=== PATIENT | male | born 1960 | race Caucasian/White ===

== ENCOUNTER → 2016-07-21 | Day surgery (SDC) | payer OTHER ==
[~2016-07-21] MED LIST: BUPIVACAINE HCL PF 0.5% 30 ML VIAL ONE; CYCL1TAB29 PO; GABA100C4 PO; HYDR-3583 PO; MULTTAB67 PO; PROPOFOL 200 MG/20 ML AMP IV ONE; SERT-129 PO; TRIAMCINOLONE ACETONIDE 40 MG/ML VIAL I-ARTICULR ONE
--- NOTE | 2016-07-26 10:11 | M6 ---
cc: CALVIN NAVARRO M.D. DATE: 07/21/2016 DATE OF : 1960 PROCEDURE Fluoroscopically guided bilateral cervical facet joint injections History and physical was completed and signed. Consent was signed. Procedure site was marked. Medications were listed and reconciled. Pain score was recorded. Allergies were noted. Time out was taken. Fluoroscopy time was recorded where applicable. Sedation was administered or directed by Dr. Navarro. The patient was given oxygen. The patient was monitored by a registered nurse. Total procedure time was greater than 15 minutes. PROCEDURE NOTE: IV was started, blood pressure cuff, pulse oximeter and EKG were applied. The patient was placed in the prone position on a Sha table sedated with small amounts of propofol titrated to effect. Vital signs were monitored and remained stable throughout the procedure. The cervical area was prepped with alcohol and 10% Betadine solution, draped with sterile drapes. Fluoroscopy was used to visualize the bilateral cervical facet joints at C3-C4, C4-C5 and C5-C6. Separate sterile 3-1/2 inch, 25 gauge spinal needles were advanced into these joints under fluoroscopic guidance. There was negative aspiration for blood or any other type of fluid and the patient was given 1 mL of 0.5% Marcaine, 10 mg of Kenalog at each location. Following this the patient was taken to the recovery room with stable vital signs neurologically intact. He will be evaluated immediately and with followup to determine if he has a subjective decrease in his usual pain and a corresponding objective increase his functional capabilities. W. MD BUD Kwan/LJ /9:27 AM /10:09 AM
== END | disposition home or self-care (01) ==
LOC: PHSDC 08:35
PROVIDERS: ATTEND Pain Medicine Interventional Pain Medicine
DX: M54.2 Cervicalgia (principal)
CPT/HCPCS: 64490; 64491; 64492; 99152; J3301

== ENCOUNTER → 2017-01-14 | Day surgery (SDC) | payer OTHER ==
[~2017-01-14] MED LIST changes: +methylPREDNISolone ACETATE 40 MG/ML VIAL I-ARTICULR ONE
--- NOTE | 2017-01-14 08:42 | M6 ---
cc: CALVIN NAVARRO M.D. DATE: 01/14/2017 1960 PROCEDURE 1. Fluoroscopically guided injection bilateral cervical facet joints. 2. Fluoroscopically guided injection bilateral sacroiliac joints. History and physical was completed and signed. Consent was signed. Procedure site was marked. Medications were listed and reconciled. Pain score was recorded. Allergies were noted. Time out was taken. Fluoroscopy time was recorded where applicable. Sedation was administered or directed by Dr. Navarro. The patient was given oxygen. The patient was monitored by a registered nurse. Total procedure time was greater than 15 minutes. IV was started, blood pressure cuff, pulse oximeter and EKG were applied. The patient was placed in the prone position on a Sha table, sedated with small amounts of propofol titrated to effect. Vital signs were monitored and remained stable throughout the procedure. The cervical area was prepped with alcohol and 10% Betadine solution, draped with sterile drapes. Fluoroscopy was used to visualize the bilateral cervical facet joints at C3-4, C4-5 and C5-6. Separate sterile 3-1/2-inch 25-gauge spinal needles were advanced to these joints under fluoroscopic guidance. There was negative aspiration for blood or any other type of fluid and at each location the patient was given 1 mL Marcaine 0.5% which contained 10 mg of Kenalog. Following that the area over the bilateral sacroiliac joints was prepped with alcohol and Betadine and draped with sterile drapes. 5-1/2-inch 22-gauge spinal needles were advanced into the joints using fluoroscopy shooting from medial to lateral, so the posterior joint line of the sacroiliac joint was clearly visualized and there was negative aspiration for blood or any other type of fluid. At each location the patient was given 2 mL of 0.5% Marcaine and 20 mg of Depo-Medrol. Following the procedure the patient was taken to the recovery room with stable vital signs, neurologically intact. W. MD BUD Kwan/MALAL /8:29 AM /8:33 AM
== END | disposition home or self-care (01) ==
LOC: PHSDC 07:22
PROVIDERS: ATTEND Pain Medicine Interventional Pain Medicine
DX: M47.22 Other spondylosis with radiculopathy, cervical region (principal); M46.82 Other specified inflammatory spondylopathies, cervical region
CPT/HCPCS: 27096; 64490; 64491; 64492; 99152; J1030; J3301; G0260

== ENCOUNTER 2017-07-14 12:42 | Emergency (ER) | payer OTHER ==
[~2017-07-14] VITALS: Ht 167.6 cm; Wt 80.0 kg
[~2017-07-14 12:42] MED LIST changes: -BUPIVACAINE HCL PF 0.5% 30 ML VIAL ONE; +CYCL10TA PO; -CYCL1TAB29 PO; -PROPOFOL 200 MG/20 ML AMP IV ONE; -TRIAMCINOLONE ACETONIDE 40 MG/ML VIAL I-ARTICULR ONE; -methylPREDNISolone ACETATE 40 MG/ML VIAL I-ARTICULR ONE
[2017-07-14 13:02] VITALS: BP 202/102; PULSE 104; RESP 16; TEMP 97.9; O2SAT 94
[2017-07-14] MEDS ORDERED: ROBA750T PO (15:41)
[2017-07-14] MEDS ORDERED: MEDR4PAK PO (16:05)
--- NOTE | 2017-07-14 16:05 | PD ---
HPI Chief Complaint: Back/ Neck Pain or Injury Time Seen by Provider: 15:43 Travel History International Travel<30 days: No Contact w/Intl Traveler<30days: No Traveled to known affect area: No History of Present Illness HPI 57-year-old male presents to the emergency department wanting relief from his chronic low back pain. He is a patient of Dr. Dunbar and he had an outpatient MRI done on Wednesday which showed moderate to severe stenosis of L3-S1. Has an appointment with Dr. Green scheduled next Wednesday. He says he has had worsening of his low back pain for the last 3 weeks with some bilateral leg weakness. Back pain is equal bilaterally. Says it radiates down both of his legs. Says he is able to ambulate, but it is difficult to stand up straight secondary to the pain increasing. Reports decreased flexion and extension of foot which has been going on for a long time now. Has no change in symptoms since he had the MRI on Wednesday. Denies encopresis, incontinence, saddle anesthesias. Denies IV drug use, cancer. Denies fever, vomiting, abdominal pain, change in urine or stool. Takes Lortab 10 mg 3 times daily and Robaxin every 6 hours 750 mg for symptom management. Rates pain 10/10. Worse with standing up straight. Better at rest. Neurosurgeons Dr. Hand. No known allergies. Has no other medical complaints. No other modifying factors or associated signs and symptoms. PFSH Past Medical History Cancer: No Cardiovascular Problems: No Diabetes: No Diminished Hearing: No Endocrine: No Gastrointestinal Disorders: No Genitourinary: No Hepatitis: No Hiatal Hernia: No Hypertension: No Immune Disorder: No Implanted Vascular Access Dvce: No Musculoskeletal: Yes (ARTHRITIS, NECK AND BACK) Neurologic: Yes (NUMBNESS TINGLING LEFT ARM AND LEFT SIDE OF FACE) Psychiatric: No Reproductive: No Respiratory: No Thyroid Disease: No Past Surgical History Oral Surgery: Yes (TONSILLECTOMY, WISDOM TEETH EXTRACTED) Tonsillectomy: Yes Other Surgery: Yes (CERVICAL FUSION - 2016 BY IMTIAZ) Social History Alcohol Use: Yes (seldom) Tobacco Use: No (chew daily) Substance Use: No Allergies-Medications (Allergen,Severity, Reaction): Coded Allergies: No Known Allergies (Verified Adverse Reaction, Unknown, 07/14/17) Reported Meds & Prescriptions Reported Meds & Active Scripts Active Medrol Dosepak (Methylprednisolone) 4 Mg Dspk 4 Mg PO DIRECTED Per Pharmacist direction Reported Robaxin (Methocarbamol) 750 Mg Tab 750 Mg PO Q4H Flexeril (Cyclobenzaprine HCl) 10 Mg Tab 10 Mg PO HS Gabapentin 100 Mg Cap 100 Mg PO DAILY Hydrocodone-Acetaminophen 10-325 mg Tab 1 Tab PO Q6H PRN Multiple Vitamin 1 Tab 1 Tab PO DAILY Sertraline (Sertraline HCl) 100 Mg Tab 150 Mg PO HS Review of Systems Except as stated in HPI: all other systems reviewed are Neg Physical Exam Narrative GENERAL: Well-nourished, well-developed male patient, in no acute distress; afebrile, nontoxic-appearing SKIN: Warm and dry. HEAD: Atraumatic. Normocephalic. EYES: Pupils equal and round. No scleral icterus. No injection or drainage. ENT: Mucosa pink and moist. Airway patent. NECK: Trachea midline. CARDIOVASCULAR: Regular rate. RESPIRATORY: No accessory muscle use. GASTROINTESTINAL: Rounded. MUSCULOSKELETAL: Bilateral lower extremities supple and non-tense with 2+ pedal pulses and sensory intact; with full range of motion and 5/5 strength. 2 + DTRs bilaterally. Active dorsiflexion and extension of bilateral feet; less to the right foot than the left. Bilateral straight leg raise is positive for low back pain. Ambulatory in room with guarded gait. Sitting up in bed at 90 . No obvious deformities. No clubbing. No cyanosis. No edema. BACK: Midline point tenderness on palpation of the lumbar spine. Tenderness on palpation of bilateral lumbar and paraspinal iliosacral area. No obvious deformities. NEUROLOGICAL: Awake and alert. Oriented 3. No obvious cranial nerve deficits. Motor grossly within normal limits. Normal speech. Moves all extremities. 5/5 strength to all extremities. Sensory intact. PSYCHIATRIC: Appropriate mood and affect; insight and judgment normal. Data Data Last Documented VS Vital Signs Date Time Temp Pulse Resp B/P (MAP) Pulse Ox O2 Delivery O2 Flow Rate FiO2 07/14/17 13:02 97.9 104 16 202/102 (135) 94 Orders Orders Ed Discharge Order (07/14/17 16:05) MDM Medical Decision Making Medical Screen Exam Complete: Yes Emergency Medical Condition: Yes Medical Record Reviewed: Yes Differential Diagnosis Spinal stenosis, degenerative disc disease, acute exacerbation of chronic low back pain, pain management Narrative Course 57-year-old male with chronic low back pain and presents to the ER for relief of pain. He has an appointment scheduled next Wednesday with Dr. Hand, his neurosurgeon. He had outpatient MRI done on Wednesday which showed severe stenosis of L3-S1. He denies encopresis, incontinence, saddle anesthesias. Denies IV drug use or cancer. His current symptoms have been unchanged since Wednesday and are consistent with symptoms for the past few weeks. I discussed the patient with Dr. French, my attending physician, and he agrees with my plan of care. Patient has Lortab and Robaxin prescribed for home. Medrol Dosepak prescribed for home. Instructed patient to follow-up with Dr. Hand as scheduled. Instructed patient to follow up with primary care provider. Patient verbalizes understanding and agreement with treatment plan. Patient is medically cleared and stable for discharge. Discussed reasons to return to the emergency department. Patient agrees with treatment plan. The patients vital signs are stable and the patient is stable for outpatient follow-up and treatment. Patient discharged home, stable and in no acute distress. Diagnosis Primary Impression: Chronic low back pain Qualified Codes: M54.5 - Low back pain; G89.29 - Other chronic pain Referrals: Neurosurgeon Primary Care Physician Patient Instructions: Acute Low Back Pain (ED), General Instructions, Sciatica (ED) Departure Forms: Tests/Procedures, Work Release Enter return to work date: Jul 22, 2017 Additional Instructions: Tylenol or ibuprofen as directed and as needed for pain Robaxin as prescribed and as needed for muscle spasms Heating pad and/or ice to affected area to reduce pain Avoid aggravating activities; increase activity as tolerated Follow-up with primary care provider Follow-up with Dr. Hand at scheduled appointment Return to emergency department immediately with worsening of symptoms Med/Other Pt SpecificInfo: Prescription(s) given Scripts Methylprednisolone Dosepak (Medrol Dosepak) 4 Mg Dspk 4 MG PO DIRECTED, #1 DSPK 0 Refills Per Pharmacist direction Prov: Eneida Hooks 07/14/17 Disposition: 01 DISCHARGE HOME Condition: Stable Eneida Hooks Jul 14, 2017 16:05
[2017-07-14 16:16] VITALS: BP 136/93
[2017-07-23] MEDS ORDERED: DICL1CAP4 PO (06:31)
== END 2017-07-14 16:31 | disposition home or self-care (01) ==
LOC: NEPD 12:42
DX: M54.5 Low back pain (principal); G89.29 Other chronic pain
CPT/HCPCS: 99283

== ENCOUNTER → 2017-07-21 | Outpatient (CLI) | payer OTHER ==
[~2017-07-21] MED LIST changes: +DICL1CAP4 PO; +MEDR4PAK PO; +ROBA750T PO
[2017-07-21 15:29] LABS: BILIRUBIN, URINE NEG (NEG); BLOOD, URINE MOD (NEG); GLUCOSE,URINE NEG (NEG); KETONE, URINE NEG (NEG); MUCUS URINE FEW /lpf (OCC); NITRITE,URINE NEG (NEG); URINE COLOR YELLOW (YELLW/STRAW); URINE LEUKOCYTE ESTERASE NEG (NEG)
[2017-07-21 15:50] LABS: AUTOMATED NEUTROPHIL # 4.9 TH/MM3 (1.8-7.7); BASOPHIL # 0.1 TH/MM3 (0-0.2); EOSINOPHIL # 0.3 TH/MM3 (0-0.4); EOSINOPHIL % 3.5 % (0.0-4.0); HEMATOCRIT 44.7 % (39.0-51.0); HEMOGLOBIN 15.6 GM/DL (13.0-17.0); LYMPH % 25.3 % (9.0-44.0); LYMPHOCYTE # 2.1 TH/MM3 (1.0-4.8); MEAN CORPUSCULAR HEMOGLOBIN 32.1 PG (27.0-34.0); MEAN CORPUSCULAR HGB CONC 34.9 % (32.0-36.0); MEAN PLATELET VOLUME 6.9 FL (7.0-11.0); MONO % 9.6 % (0.0-8.0); MONOCYTE # 0.8 TH/MM3 (0-0.9); NEUT % 60.6 % (16.0-70.0); PLATELET COUNT 348 TH/MM3 (150-450); RED BLOOD COUNT 4.86 MIL/MM3 (4.50-5.90); RED CELL DISTRIBUTION WIDTH 13.1 % (11.6-17.2); WHITE BLOOD COUNT 8.1 TH/MM3 (4.0-11.0)
[2017-07-21 17:22] LABS: AST (GOT) 23 U/L (15-37); BICARBONATE 23.2 MEQ/L (21.0-32.0); BLOOD UREA NITROGEN 22 MG/DL (7-18); CALCIUM 9.3 MG/DL (8.5-10.1); CHLORIDE 106 MEQ/L (98-107); CREATININE 0.83 MG/DL (0.60-1.30); GLOMERULAR FILTRATION RATE 95 ML/MIN (>89); GLUCOSE,FASTING 95 MG/DL (74-99); SODIUM (NA) 138 MEQ/L (136-145)
[2017-07-21 17:23] LABS: ALT (GPT) 41 U/L (12-78)
[2017-07-21 17:26] LABS: ALKALINE PHOSPHATASE 106 U/L (45-117); TOTAL BILIRUBIN ADULT 0.3 MG/DL (0.2-1.0); TOTAL PROTEIN 7.9 GM/DL (6.4-8.2)
--- NOTE | 2017-07-22 13:51 | EKG ---
Date Performed: 07/21/2017 Time Performed: 15:17:00 PTAGE: 57 years EKG: Sinus rhythm NORMAL ECG Since the PREVIOUS TRACING , no significant change noted PREVIOUS TRACIN03/04/2015 11.48 DOCTOR: Kiera Okeefe Interpretating Date/Time 07/22/2017 13:49:59
== END ==
LOC: CLAB 14:48
PROVIDERS: ATTEND Physician Assistant Medical
DX: Z01.810 Encounter for preprocedural cardiovascular examination (principal); Z01.812 Encounter for preprocedural laboratory examination; Z01.811 Encounter for preprocedural respiratory examination; Z79.01 Long term (current) use of anticoagulants
CPT/HCPCS: 36415; 80053; 81001; 85025; 85610; 85730; 93005

== ENCOUNTER → 2017-07-23 | Day surgery (SDC) | payer OTHER ==
[~2017-07-23] VITALS: Ht 165.1 cm; Wt 87.1 kg
[~2017-07-23] MED LIST changes: +ACETAMINOPHEN 1000 MG/100 ML 100 ML IV ONE; +ACETAMINOPHEN/HYDROcodone 325 MG/10 MG TAB PO PRN; +BUPIVACAINE/EPINEPHRINE 0.5% 50 ML VIAL ONE; +CHLORHEXIDINE GLUCONATE 2 % 1 PACK (2 CLOTHS) TOPICAL PRN; -CYCL10TA PO; +DICLOFENAC SODIUM 75 MG DELAYED RELEASE TAB PO SCH; +DO NOT ADM ANY ANTICOAGULANT DRUGS PRN; +GABAPENTIN 100 MG CAP PO SCH; +GELFOAM SIZE 100 ONE; +LACTATED RINGER'S 1000 ML IV PRN; -MEDR4PAK PO; +METHOCARBAMOL 500 MG TAB PO SCH; +METOPROLOL TARTRATE 25 MG TAB PO PRN; +MIDAZOLAM HCL 2 MG/2 ML VIAL ONE; +MORPHINE SULFATE 4 MG/ML INJ IV PUSH PRN; +MULTIVITAMIN TAB PO SCH; +POVIDONE IODINE 5% (ANTISEPSIS KIT) 4 APPLICATIONS EACH NARE PRN; +PROPOFOL 200 MG/20 ML AMP IV ONE; +SERTRALINE HCL 100 MG TAB PO SCH; +SODIUM CHLORID 0.9% 500 ML IV PRN; +SODIUM CHLORIDE 0.9% 1000 ML IV SCH; +THROMBIN (TOPICAL) 5,000 UNIT VIAL ONE; +VANCOMYCIN 1 GM/200 ML PREMIX ON-CALL IV SCH; +VANCOMYCIN 500 MG VIAL ONE; +VANCOMYCIN HCL 1000 MG VIAL ONE; +methylPREDNISolone ACETATE 40 MG/ML VIAL ONE
--- NOTE | 2017-07-23 11:27 | PD.OP ---
cc: Juju Lorenzo MD Operative Report Date of Surgery: Jul 23, 2017 Preoperative Diagnosis: Lumbar L3-4 and L4-5 severe spinal stenosis from facet and ligamentum flavum hypertrophy with associated pain and neurogenic claudication with bilateral foot drop Postoperative Diagnosis: Same Procedure: Lumbar L3, L4 and L5 decompressive laminectomies with medial facetectomy and foraminotomy; microsurgical technique Anesthesia: General endotracheal by Claudia england Surgeon: René Hand MD Chain Saw Mechanic(s): Bria Khalil Operation and Findings: Following administration of general endotracheal anesthesia, patient received vancomycin 1 g intravenously. Sequential compression devices were placed for DVT prophylaxis. He was then turned in prone position on Jaime frame and the Sha table and all pressure points adequately padded. The lumbar region was then shaved and prepped with a Betadine and ChloraPrep. Sterile draping undertaken with Ioban. Midline incision overlying the L3-L4 and L4-5 levels was then made after infiltrating the skin with 0.5% Marcaine with epinephrine solution. The skin incision was made extending down through the fascia and then using the subperiosteal plane on the left side the muscular attachments to the spinous process and lamina were detached. Intraoperative fluoroscopy was used for level confirmation and further dissection undertaken using microtechnique with microscope magnification. The inferior portion of the left L3, L4 and superior portion of the L5 lamina was then drilled out and the underlying ligamentum flavum also removed. There was significant facet arthropathy noted and the medial portion of hypertrophied facets were also resected and the lateral recess decompressed. Epidural venous stasis which he with the bipolar cautery along with Gelfoam and thrombin and bone wax used at the laminotomy edges for hemostasis. With gentle thecal sac reconstruction from the left-sided hemilaminotomies right sided spinal canal decompression was also undertaken with removal of the hypertrophied ligamentum flavum and medial portion of the facets. The area was then copiously irrigated with vancomycin solution. The retractors removed and the muscle fascia proximal using 2-0 Vicryl interrupted stitches. 3-0 Vicryl subcuticular stitches were also placed in an interrupted fashion and planned skin closure was with Mastisol and Steri- Strips. A sterile dressing was then applied and the patient then turned in the supine position and extubated and taken to recovery room in stable condition. There were no intraoperative complications and all sponge and needle count was correct at the end of the procedure. Estimated blood loss about 25 cc. René Hand MD Jul 23, 2017 11:27
[2017-07-23 13:13] VITALS: BP 147/76; PULSE 78; RESP 18; TEMP 97.7; O2SAT 94
--- NOTE | 2017-07-23 15:20 | RADRPT ---
EXAM DATE/TIME: 07/23/2017 09:08 [facility] COMPARISON: No previous studies available for comparison. INDICATIONS : L3-L4 and L4-L5 laminectomies. Level localization. MEDICAL HISTORY : None. SURGICAL HISTORY : None. ENCOUNTER: Initial ACUITY: 1 day PAIN SCORE: Non-responsive. LOCATION: Lumbar spine. FINDINGS: Single lateral view of the lower lumbar region is obtained digitally in the operating room using C-ar m. Surgical retractor and 3 localization probes are present. CONCLUSION: Intraoperative image. Liban Ovalle MD on July 23, 2017 at 15:17 Board Certified Radiologist. This report was verified electronically.
== END | disposition home or self-care (01) ==
LOC: HSDC 06:00
PROVIDERS: ATTEND Neurological Surgery
DX: M48.062 Spinal stenosis, lumbar region with neurogenic claudication (principal); M54.5 Low back pain; M21.371 Foot drop, right foot; M21.372 Foot drop, left foot; M62.81 Muscle weakness (generalized); R26.89 Other abnormalities of gait and mobility
CPT/HCPCS: 00630; 63047; 63048; 72020; 76000; J0131; J1030; J2250; J3010; J3370; J7120